=== PATIENT | female | born 1960 | race Caucasian/White ===

== ENCOUNTER 2016-10-15 09:44 | Emergency (ER) | payer BC ==
[~2016-10-15] VITALS: Ht 167.6 cm; Wt 80.0 kg
[~2016-10-15 09:44] MED LIST: AUGMENTIN875 MG OR; CLONAZEPAM1 MG PO; COMBIVIR 1501 COMBO PO; DIAZEPAM5 MG PO; HRT BASE XX; LORTAB 5 OR; PERCOCET 5/325M1 TAB PO; STOOL SOFTEN240 MG PO; ULTRAM50 M1 PO; [UNRECOGNIZED DRUG - OTHER] XX
[2016-10-15 10:29] LABS: URINE BILIRUBIN - DIPSTICK NEGATIVE (NEGATIVE); URINE BLOOD DIPSTICK NEGATIVE (NEGATIVE); URINE CLARITY CLEAR; URINE COLOR YELLOW; URINE GLUCOSE - DIPSTICK NEGATIVE (NEGATIVE); URINE KETONE NEGATIVE (NEGATIVE); URINE LEUK ESTERASE NEGATIVE (NEGATIVE); URINE NITRITE - DIPSTICK NEGATIVE (Negative); URINE PROTEIN - DIPSTICK NEGATIVE (NEG-TRACE); URINE SPECIFIC GRAVITY <=1.005; URINE UROBILINOGEN - DIPSTICK 0.2 E.U./dL (0.2)
[2016-10-15 11:13] LABS: HEMATOCRIT 47.2 % (37.0-47.0); HEMOGLOBIN 15.6 g/dl (12.0-16.0); IMMATURE GRANULOCYTES 0.2 % (0.0-1.0); MEAN CORPUSCULAR HGB 30.4 pG CALC (26.0-32.0); MEAN CORPUSCULAR HGB CONC 33.1 g/L CALC (32.0-36.0); NEUT# 3.7 thou/uL (2.00-7.15); RED BLOOD COUNT 5.13 mill/uL (4.20-5.60); RED CELL DISTRI WIDTH 13.2 % (11.5-15.5)
[2016-10-15 11:22] LABS: ALKALINE PHOSPHATASE 94 u/l (38-126); ANION GAP 13 (6-22 (CALC)); BILIRUBIN, TOTAL 0.6 mg/dL (0.0-1.4); BUN 16 mg/dL (7-17); BUN/CREATININE RATIO 23 (12-20 (CALC)); CALCIUM 9.6 mg/dL (8.4-10.2); CARBON DIOXIDE 24 mmol/l (22-30); CHLORIDE 107 mmol/l (95-108); CREATININE 0.7 mg/dL (0.5-1.0); GFR > 60 ML/MIN (>=60 (CALC)); GFR FOR AFR.AMER. > 60 ML/MIN (>=60 (CALC)); GLUCOSE 99 mg/dL (65-105); LIPASE 139 u/l (23-300); POTASSIUM 4.1 mmol/l (3.5-5.1); SGOT/AST 30 u/l (14-36); SGPT/ALT 46 u/l (9-52); SODIUM 140 mmol/l (137-146)
[2016-10-15] MEDS ORDERED: TAMSULOSIN0.4 MG PO (13:34)
[2016-10-15] MEDS ORDERED: PERCOCET 5/325M1 TAB PO (13:34)
[2016-10-15 13:37] VITALS: BP 128/88
== END 2016-10-15 13:47 | disposition home or self-care (01) | DRG 694 ==
LOC: ED 09:44
PROVIDERS: Family Medicine
DX: N20.0 Calculus of kidney (principal)
CPT/HCPCS: Q9967

== ENCOUNTER 2016-10-25 21:22 | Emergency (ER) | payer BC ==
[~2016-10-25] VITALS: Ht 167.6 cm; Wt 70.0 kg
[~2016-10-25 21:22] MED LIST changes: +TAMSULOSIN0.4 MG PO
[2016-10-25 22:17] LABS: HEMATOCRIT 44.1 % (37.0-47.0); HEMOGLOBIN 14.6 g/dl (12.0-16.0); IMMATURE GRANULOCYTES 0.3 % (0.0-1.0); MEAN CELL VOLUME 92.6 fL CALC (80.0-100.0); MEAN CORPUSCULAR HGB 30.7 pG CALC (26.0-32.0); MEAN CORPUSCULAR HGB CONC 33.1 g/L CALC (32.0-36.0); NEUT# 10.86 thou/uL (2.00-7.15); RED BLOOD COUNT 4.76 mill/uL (4.20-5.60); RED CELL DISTRI WIDTH 13.4 % (11.5-15.5); URINE BILIRUBIN - DIPSTICK NEGATIVE (NEGATIVE); URINE BLOOD DIPSTICK LARGE (NEGATIVE); URINE CLARITY CLEAR; URINE COLOR YELLOW; URINE GLUCOSE - DIPSTICK NEGATIVE (NEGATIVE); URINE KETONE NEGATIVE (NEGATIVE); URINE LEUK ESTERASE TRACE (NEGATIVE); URINE NITRITE - DIPSTICK NEGATIVE (Negative); URINE PH 5.5 (4.5-8.0); URINE PROTEIN - DIPSTICK 100 mg/dL (NEG-TRACE); URINE SPECIFIC GRAVITY >=1.030; URINE UROBILINOGEN - DIPSTICK 0.2 E.U./dL (0.2)
[2016-10-25 22:25] LABS: URINE RBC TNTC RBC/hpf (0-5)
[2016-10-25 22:26] LABS: URINE SQUAMOUS EPITHELIAL CELL FEW EPI/hpf (0-FEW)
[2016-10-25 22:39] LABS: ALBUMIN 3.9 g/dL (3.2-5.0); ALKALINE PHOSPHATASE 105 u/l (38-126); ANION GAP 14 (6-22 (CALC)); BILIRUBIN, TOTAL 0.5 mg/dL (0.0-1.4); BUN 26 mg/dL (7-17); BUN/CREATININE RATIO 28 (12-20 (CALC)); CALCIUM 9.6 mg/dL (8.4-10.2); CARBON DIOXIDE 25 mmol/l (22-30); CHLORIDE 106 mmol/l (95-108); CREATININE 0.9 mg/dL (0.5-1.0); GFR > 60 ML/MIN (>=60 (CALC)); GFR FOR AFR.AMER. > 60 ML/MIN (>=60 (CALC)); GLUCOSE 109 mg/dL (65-105); POTASSIUM 4.6 mmol/l (3.5-5.1); SGOT/AST 48 u/l (14-36); SGPT/ALT 84 u/l (9-52); SODIUM 141 mmol/l (137-146)
[2016-10-25] MEDS ORDERED: CLONAZEPAM1 MG PO (23:14)
[2016-10-25] MEDS ORDERED: LIPITOR20 M1 PO (23:15)
[2016-10-25] MEDS ORDERED: CIPROFLOXACN500 MG PO (23:19)
[2016-10-25] MEDS ORDERED: BACTRIM DS1 TAB PO (23:55)
[2016-10-25] MEDS ORDERED: PERCOCET1 TA2 PO (23:55)
[2016-10-26 00:32] VITALS: BP 139/72
== END 2016-10-26 00:33 | disposition home or self-care (01) | DRG 392 ==
LOC: ED 21:22
PROVIDERS: Emergency Medicine
DX: R10.32 Left lower quadrant pain (principal); Z87.442 Personal history of urinary calculi; N39.0 Urinary tract infection, site not specified

== ENCOUNTER 2023-11-04 09:22 | Day surgery (SDC) | payer OTHER ==
[~2023-11-04 09:22] MED LIST changes: +BACTRIM DS1 TAB PO; +CIPROFLOXACN500 MG PO; +CRESTOR5 MG PO; +GABAPENTIN100 MG PO; +HRT BASE TOP; +LIPITOR20 M1 PO; +PERCOCET1 TA2 PO; +PROZAC10 MG PO
[2023-11-04] MEDS ORDERED: FAMOTIDINE 10MG/ML 2ML SDV IV ONE (09:57)
[2023-11-04] MEDS ORDERED: LACTATED RINGER'S 1,000 ML IV ONE (09:57)
[2023-11-04] MEDS ORDERED: SODIUM CHLORIDE 0.9% 50 ML IV ONE (12:01)
[2023-11-04] MEDS ORDERED: PROMETHAZINE HCL 25 MG/ML AMP ONE (12:04)
[2023-11-04 12:22] VITALS: BP 124/81
[2023-11-04] MEDS ORDERED: LIDOCAINE HCL 2% 2ML SDV IV ONE (13:13)
[2023-11-04] MEDS ORDERED: PROPOFOL 200 MG/20 ML VIAL IV ONE (13:13)
[2023-11-04] MEDS ORDERED: GLYCOPYRROLATE 0.2 MG/ML IV ONE (13:13)
== END 2023-11-04 12:22 | disposition home or self-care (01) | DRG 951 ==
LOC: ENDO 09:22 → ORM 13:05
PROVIDERS: ATTEND Internal Medicine Gastroenterology
PROC: 0DJD8ZZ Inspection of Lower Intestinal Tract, Via Natural or Artificial Opening Endoscopic (ICD-10-PCS; principal; 2023-11-04)
DX: Z12.11 Encounter for screening for malignant neoplasm of colon (principal); K57.30 Diverticulosis of large intestine without perforation or abscess without bleeding; K64.8 Other hemorrhoids; K58.2 Mixed irritable bowel syndrome; E78.5 Hyperlipidemia, unspecified; Z87.891 Personal history of nicotine dependence; Z86.010 Personal history of colon polyps; Z80.0 Family history of malignant neoplasm of digestive organs